=== PATIENT | male | born 1955 | race Asian ===

== ENCOUNTER 2018-04-17 08:06 | Day surgery (SDC) | payer OTHER ==
[~2018-04-17] VITALS: Ht 160 cm; Wt 62.7 kg
[2018-04-17] VITALS (15 sets, daily range): BP systolic 95–154; BP diastolic 69–91; PULSE 67–112
[2018-04-17 08:45] LABS: HEMOGLOBIN 16.8 g/dl (13.5-18.0); MEAN CELL VOLUME 81 fl (80.0-100.0); MEAN CORPUSCULAR HEMOGLOBIN 28 pg (27.0-31.0); MEAN CORPUSCULAR HGB CONC 35 g/dl (33.0-37.0); MEAN PLATELET VOLUME 9.3 fl (7.4-10.4); PLATELET COUNT 201 K/mm3 (130-400); RED BLOOD COUNT 5.93 M/mm3 (4.20-5.60); REDCELL DISTRIBUTION WIDTH-CV 12.9 % (11.5-14.5)
[2018-04-17 08:51] LABS: INR 1.1 (0.8-3.0)
[2018-04-17] MEDS ORDERED: CRESTOR20 MG PO (08:53)
[2018-04-17] MEDS ORDERED: ASPIRIN E.C. 8181 MG PO (08:55)
[2018-04-17] MEDS ORDERED: OMEGA-3 1000 MG1 CAP PO (08:58)
[2018-04-17] MEDS ORDERED: MULTIPLE VITAMI1 CAP PO (08:59)
[2018-04-17] MEDS ORDERED: DRAMAMINE LESS25 MG PO (09:00)
[2018-04-17 09:03] LABS: CALCIUM 9.7 mg/dL (8.4-10.2); CREATININE, serum 0.95 mg/dL (0.66-1.25)
== END 2018-04-17 17:00 | disposition home or self-care (01) ==
LOC: COL.CAR 08:06
PROVIDERS: Internal Medicine Interventional Cardiology
DX: I25.10 Atherosclerotic heart disease of native coronary artery without angina pectoris (principal); R00.1 Bradycardia, unspecified; I95.89 Other hypotension; I47.1 Supraventricular tachycardia; I10 Essential (primary) hypertension; Z79.82 Long term (current) use of aspirin; Z79.899 Other long term (current) drug therapy; E78.5 Hyperlipidemia, unspecified
CPT/HCPCS: J0461; J1644; J2250; J3010; Q9967